=== PATIENT | female | born 1995 | race African-American/Black ===

== ENCOUNTER 2016-04-22 22:09 | Emergency (ER) | payer OTHER ==
[~2016-04-22 22:09] MED LIST: AMOX500C PO; AZIT500T2 PO; DOXY1CAP91 PO; PYRI25TA2 PO; TRICTAB PO; UNIS25TA2 PO
--- NOTE | 2016-04-22 22:36 | PD ---
HPI Chief Complaint lower abdominal pressure Date Seen: Apr 22, 2016 Travel History International Travel<30 Days: No Contact w/Intl Traveler<30Days: No Known Affected Area: No History of Present Illness HPI Ms. Gaitan is a 20 yo at 36 3/7 weeks ([facility] 05/17/2016) who presents with complaint of lower abdominal/buttock pressure for the past several hours. Patient reports that she was driving back from [place] this evening when she began to have significant pressure. Patient denies associated nausea, vomiting, or fevers. Patient denies any associated vaginal bleeding or loss of vaginal fluid. Patient states that she has been having increased urinary frequency recently but denies dysuria. Patient also reports several weeks of dizziness/lightheadedness while at school. Patient reports adequate hydration. Patient does not reports shortness of breath, chest pain, calf pain, or other symptoms at this time. Patient reports that she has not had an OB provider for several months. Patient saw Kathy Chang early during and then was subsequently treated for GC/Chlamydia at OB ED 01/2016. Patient stated that she subsequently sought OB care but was unable to find a provider. Para: 2 : 3 History Past Medical History Narrative Medical Anemia (Hgb 9.5 as of 01/2016) Migraines Chlamydia/Gonorrhea- treated 01/2016 Obstetric History Obstetric History Past Surgical History Surgical History: No Previous Surgery Family History Family History: Negative Social History Narrative Social History Patient attends class at [employer] Alcohol Use: No Tobacco Use: No Substance Abuse: Yes (Patient reports marijuana use) Allergies-Medications (Allergen,Severity, Reaction): Coded Allergies: Azithromycin (Verified Allergy, Unknown, N/V, 02/13/16) Home Meds Active Scripts Ferrous Sulfate 325 Mg Bht304 Mg PO BID #60 TAB Ref 0 Prov:Cesar Erickson MD R2 04/23/16 Nitrofurantoin Monohydrate Macrocrystals (Macrobid)100 Mg Hrp327 Mg PO BID #14 CAP Ref 0 Prov:Cesar Erickson MD R2 04/23/16 Discontinued Scripts Doxycycline (Monohydrate) (Doxycycline)100 Mg Iti306 Mg PO BID #20 TAB Ref 0 Prov:Dann Palafox MD R1 02/13/16 Azithromycin 500 Mg Tab1,000 Mg PO ONCE #2 TAB Ref 0 Prov:Dann Palafxo MD R1 02/13/16 Amoxicillin 500 Mg Wym820 Mg PO TID #21 CAP Ref 0 Prov:Dann Palafox MD R1 02/13/16 Doxylamine Succinate (Sleep) (Unisom)25 Mg Tab12.5 Mg PO BID PRN (NAUSEA) #60 TAB Ref 0 Prov:Harman Mai MD R2 02/12/16 Pyridoxine 25 Mg Tab25 Mg PO Q8HR PRN (NAUSEA) #60 TAB Ref 0 Prov:Harman Mai MD R2 02/12/16 Vit-Ferrous Fumarate ()1 Tab Tab1 Tab PO DAILY #90 TAB Ref 0 Prov:Harman Mai MD R2 02/12/16 Review of Systems General / Constitutional: No: Fever, Chills HENT: Headaches (chronic migranes) Respiratory: No: Cough, Short of Breath Gastrointestinal: Abdominal Pain (lower abdomen pressure), No: Nausea, Vomiting Genitourinary: Frequency, No: Dysuria Physical Exam BP 109/70 HR 106 RR 18 Narrative GENERAL: Well-nourished, well-developed patient. SKIN: Warm and dry. HEAD: Normocephalic and atraumatic. EYES: No scleral icterus. No injection or drainage. ENT: No nasal drainage noted. Mucous membranes pink. Airway patent. NECK: Supple, trachea midline. No JVD. CARDIOVASCULAR: Mild tachycardia, regular rhythm without murmurs RESPIRATORY: CTAB, normal rate ABDOMEN/GI: Abdomen soft, non-tender, bowel sounds present, no rebound, no guarding Gravid EXTREMITIES: No cyanosis or edema. BACK: Nontender without obvious deformity. No CVA tenderness. NEUROLOGICAL: Awake and alert. Motor and sensory function grossly within normal limits GENITOURINARY: External Genitalia: intact and normal in appearance Cervix: Dilatation: closed Membranes:Intact Uterine Contractions: occasional (~1 in 10-15 min) FHT's: Category: 1 Baseline: 145 Reactive: Y Variability: Moderate Decels: None Data Data Vital Signs Reviewed: Yes Orders Vital Signs (Adult) .ON ADMISSION (04/22/16 22:33) ^ Labor Status (04/22/16 22:33) Urinalysis - C+S If Indicated (04/22/16 22:33) Group B Beta Strep Scrn (Gbs) (04/22/16 22:33) Ob/Psych Drug Screen, Urine (04/22/16 22:33) MDM Medical Record Reviewed: Yes Narrative Course / MDM 20 yo at 36 3/7 weeks ([facility] 05/17/2016) Assessment: -Category 1 rhythm -Cervix closed -No regular contractions -Lower abdomen pressure, urinary frequency, subacute lightheadedness -PMH anemia -PMH GC/Chlamydia Plan: -Hydration encouraged -Tylenol for pain control -Will monitor EFM -Will check UA to rule out UTI -Will check UDS -Will obtain GBS Interval: UA: WBC 9, small leuk esterase, many bacteria, 1000 glucose -Culture pending UDS negative EFM reassuring with Category 1 rhythm. Sporadic contractions/irritability Suspect that patient's abdominal pain is secondary to urinary tract infection. Will discharge patient home with Macrobid prescription. Will also provide patient with Ferrous Sulfate prescription for anemia on prior labs. Patient encouraged to establish with [facility] or [facility] for OB care -Patient agreeable with this plan. Patient will seek emergency care if symptoms worsen or new symptoms develop Diagnosis Diagnosis: Primary Impression: UTI (urinary tract infection) Additional Impression: Abdominal pain affecting Disposition: 01 DISCHARGE HOME Condition: Stable Scripts Ferrous Sulfate 325 Mg Fxz353 Mg PO BID #60 TAB Ref 0 Prov:Cesar Erickson MD R2 04/23/16 Nitrofurantoin Monohydrate Macrocrystals (Macrobid)100 Mg Csr163 Mg PO BID #14 CAP Ref 0 Prov:Cesar Erickson MD R2 04/23/16 Referrals: [facility] 1 week Patient Instructions: Abdominal Pain in (ED), Urinary Tract Infection in (ED) Additional Instructions: Please call [facility] for OB appointment: [phone] If unavailable, please call [facility] to see if eligible for care: [phone] Departure Forms: School Release, Return to School Date: Apr 23, 2016 Please excuse from school until (free text option): Patient required evaluation for pain/infection during 04/22. Please provide patient with accomodations for pain during . Tests/Procedures Cesar Erickson MD R2 Apr 22, 2016 22:36
[2016-04-22] MEDS ORDERED: ACETAMINOPHEN 325 MG TAB PO ONE (23:00)
[2016-04-22 23:22] LABS: AMPHETAMINE, URINE NEG (NEG); BACTERIA, URINE MANY /hpf; BARBITURATES, URINE NEG (NEG); BLOOD, URINE NEG (NEG); COCAINE, URINE NEG (NEG); COMMENT (UR) CULTURE INDICATED; CULTURE IF INDICATED CULTURE INDICATED; GLUCOSE,URINE 1000 mg/dL (NEG); HYALINE CAST, URINE 1 /lpf (RARE); KETONE, URINE 10 mg/dL (NEG); MUCUS URINE FEW /lpf (OCC); NITRITE,URINE NEG (NEG); PH, URINE 6.5 (5.0-8.5); SQUAMOUS EPITHELIAL CELL URINE 4 /hpf (0-5); URINE COLOR LIGHT-YELLOW (YELLW/STRAW)
[2016-04-23] MEDS ORDERED: MACR100C2 PO (00:07)
[2016-04-23] MEDS ORDERED: FERR325T PO (00:07)
[2016-04-28 11:20] LABS: ECSTASY (MDMA) UR NEG (NEG); HEROIN (6-ACETYLMORPHINE) UR NEG (NEG); OBMETHADONE UR NEG (NEG); PHENCYCLIDINE URINE NEG (NEG)
[2016-04-28 11:21] LABS: BATH SALTS (MDPV) UR NEG (NEG); K2 SPICE UR NEG (NEG); OXYCODONE (PERCODAN) NEG (NEG)
== END 2016-04-23 00:25 | disposition home or self-care (01) ==
LOC: HOBED 22:09
DX: O23.43 Unspecified infection of urinary tract in pregnancy, third trimester (principal); B96.89 Other specified bacterial agents as the cause of diseases classified elsewhere; F12.90 Cannabis use, unspecified, uncomplicated; Z3A.36 36 weeks gestation of pregnancy
CPT/HCPCS: 59025; 80307; 81001; 87086; 99284; G0481

== ENCOUNTER 2016-05-11 18:56 | Emergency (ER) | payer OTHER ==
[~2016-05-11 18:56] MED LIST changes: -AMOX500C PO; -AZIT500T2 PO; -DOXY1CAP91 PO; +FERR325T PO; +MACR100C2 PO; -PYRI25TA2 PO; -TRICTAB PO; -UNIS25TA2 PO
--- NOTE | 2016-05-11 20:01 | PD ---
HPI Travel History International Travel<30 Days: No Contact w/Intl Traveler<30Days: No Known Affected Area: No History of Present Illness HPI This huong is a 20-year-old 3 para 2002 presently at 39 weeks and 1 day EDC is May 17, 2016 she presents with the chief complaint of pain in her low back pain in her hips pressure in the vaginal area no rupture of membranes no vaginal bleeding the baby is active she has seen Kathy Chang in the past however has not seen a physician in several months she was treated for GC Chlamydia January 2016 has been unable to find a provider no records are available no documented evidence of treatment for cure for GC Chlamydia No headaches no blurred vision no shortness of breath no chest pain History Past Medical History Narrative Medical She states she is allergic to Zithromax history of anemia migraines GC Chlamydia patient also has a history of pica Obstetric History Obstetric History Vaginal delivery 2 both at term Uncomplicated Patient planning on giving this baby up for adoption Past Surgical History Surgical History: No Previous Surgery Family History Family History: Negative Social History Alcohol Use: No Tobacco Use: No Substance Abuse: No Allergies-Medications (Allergen,Severity, Reaction): Coded Allergies: Azithromycin (Verified Allergy, Unknown, N/V, 02/13/16) Home Meds Active Scripts Ferrous Sulfate 325 Mg Opl843 Mg PO BID #60 TAB Ref 0 Prov:Cesar Erickson MD R2 04/23/16 Nitrofurantoin Monohydrate Macrocrystals (Macrobid)100 Mg Hiq262 Mg PO BID #14 CAP Ref 0 Prov:Cesar Erickson MD R2 04/23/16 Review of Systems Gastrointestinal: No: Nausea, Vomiting, Diarrhea, Abdominal Pain, Hematemesis, Hematochezia, Constipation, Changes in Bowel Habits, Indigestion, Loss of Appetite, Other Musculoskeletal: Pain (low back pain) Physical Exam Narrative GENERAL: Well-nourished, well-developed patient. Alert oriented 3 and cooperative in no acute distress SKIN: Warm and dry. CARDIOVASCULAR: Regular rate and rhythm without murmurs, gallops, or rubs. RESPIRATORY: Breath sounds equal bilaterally. No accessory muscle use. ABDOMEN/GI: Gravid term estimated weight of 6 pounds Gravid to [-] weeks size term Fundal Height: [-] GENITOURINARY: External Genitalia: intact and normal in appearance BUS glands: [-] Cervix: [-] Posterior soft Dilatation: [-] Fingertip Effacement: [-] 50% effaced Station: [-] -2 station Presentation: [-] Vertex Membranes: [intact Uterine Contractions: [-] Irregular FHT's: Category: [-] 1 Baseline: [-] 150 Reactive: [-] + Variability: [-] Moderate svof-na-jnyn variability Decels: [-] 0 EXTREMITIES: No cyanosis or edema. 2+ reflexes NEUROLOGICAL: Awake and alert. Motor and sensory grossly within normal limits. Five out of 5 muscle strength in all muscle groups. Normal speech. Data Data Vital Signs Reviewed: Yes (blood pressures 106/58 she is afebrile) Labs Bedside ultrasound is done BPD measures 9.5 to that equals 39 weeks and 1 day Amniotic fluid index is 13.07 Anterior grade 3 placenta Three-vessel cord positive flexion Positive tone Positive breathing 10 out of 10 biophysical profile with a reactive category 1 tracing GC/C negative patient made aware of the results she is scheduled for an induction on Tuesday May 17, 2016 at 8:00 she is aware MDM Medical Record Reviewed: No (no records available) Interpretation(s) 20-year-old at 39 weeks and 1 day Not in labor Poor care History of GC Chlamydia 10 out of 10 biophysical profile Patient scheduled for an induction on May 17 Plan External monitoring By mouth fluid hydration Urinalysis, urine drug screen, GC Chlamydia PCR If positive we will call the patient number [phone] for treatment Will obtain her records from Kathy Chang Patient had an ultrasound on October 06, 2015 here at [place] she was 7 weeks gestation that places her EDC at May 24 by her dates she is due May 17 Will schedule for an induction of labor May 17 at 8 AM Diagnosis Diagnosis: Primary Impression: with 39 completed weeks gestation Additional Impressions: Irregular contractions of the heart No care in current in third trimester Disposition: DISCHARGE HOME Condition: Stable Daily Patrick MD May 11, 2016 20:01
[2016-05-11 21:25] LABS: BACTERIA, URINE RARE /hpf; BLOOD, URINE NEG (NEG); COMMENT (UR) CULT NOT INDICATED; CULTURE IF INDICATED CULT NOT INDICATED; GLUCOSE,URINE NEG (NEG); KETONE, URINE NEG (NEG); MUCUS URINE FEW /lpf (OCC); NITRITE,URINE NEG (NEG); PH, URINE 6.5 (5.0-8.5); SQUAMOUS EPITHELIAL CELL URINE 1 /hpf (0-5); URINE COLOR COLORLESS (YELLW/STRAW)
[2016-05-11 21:29] LABS: AMPHETAMINE, URINE NEG (NEG); BARBITURATES, URINE NEG (NEG); COCAINE, URINE NEG (NEG)
[2016-05-12 02:46] LABS: CHLAMYDIA PCR NOT DETECTED (NOT DETECT); NEISSERIA PCR NOT DETECTED (NOT DETECT)
[2016-05-15 10:26] LABS: BATH SALTS (MDPV) UR NEG (NEG); ECSTASY (MDMA) UR NEG (NEG); HEROIN (6-ACETYLMORPHINE) UR NEG (NEG); K2 SPICE UR NEG (NEG); OBMETHADONE UR NEG (NEG); OXYCODONE (PERCODAN) NEG (NEG); PHENCYCLIDINE URINE NEG (NEG)
== END 2016-05-11 20:59 | disposition home or self-care (01) ==
LOC: HOBED 18:56
DX: O26.893 Other specified pregnancy related conditions, third trimester (principal); O09.33 Supervision of pregnancy with insufficient antenatal care, third trimester; Z3A.39 39 weeks gestation of pregnancy
CPT/HCPCS: 59025; 76815; 80307; 81001; 87491; 87591; 99284; G0481

== ENCOUNTER 2016-05-15 01:38 | Emergency (ER) | payer OTHER ==
[~2016-05-15] VITALS: Ht 165.1 cm; Wt 70.8 kg
--- NOTE | 2016-05-15 02:20 | PD ---
HPI Chief Complaint ctx, uncomfortable with , heartburn Date Seen: May 15, 2016 Time Seen: 02:00 Travel History International Travel<30 Days: No Contact w/Intl Traveler<30Days: No Known Affected Area: No History of Present Illness HPI 20y/o , IUP at 39.5 (by LMP) vs EDC 05/24/16 by 7w US which would place her at 38.5 PNC complicated by: 1. Insufficient PNC; she reportedly has seen Kathy Chang in the past but no PNC for months 2. GC/Chlamydia treated in 01/29 3. Teenage 4. Anemia 5. h/o migraine GONZALES 6. PICA (ice, tissues) 7. BUFA, private adoption Patient presents reporting she is uncomfortable and unable to sleep. She has been having irregular ctx since last night. She denies that the ctx are of significant intensity or frequency, but she is here because she's not able to get comfortable. She denies any attempted treatments, alleviating or aggravating factors to the ctx. She also c/o heartburn; there have been no attempted treatments and there are no aggravating or alleviating factors. She reports good FM. She denies any LOF or VB. She reports the ctx are mild and mostly just a tightening sensation. She did try to take a bath to help her sleep but was still unable to sleep. Para: 2 : 3 History Past Medical History Narrative Medical Anemia Migraine GONZALES PICA Obstetric History Obstetric History 2 FT GC/Chlamydia treated 01/29 Family History Family History: Negative Social History Narrative Social History Marijuana use, reports monthly Alcohol Use: No Tobacco Use: No Substance Abuse: Yes Allergies-Medications (Allergen,Severity, Reaction): Coded Allergies: Azithromycin (Verified Allergy, Unknown, N/V, 05/15/16) Home Meds Reported Medications [none] No Conflict Check 05/15/16 Discontinued Scripts Ferrous Sulfate 325 Mg Abt304 Mg PO BID #60 TAB Ref 0 Prov:eCsar Erickson MD R2 04/23/16 Nitrofurantoin Monohydrate Macrocrystals (Macrobid)100 Mg [id number] Mg PO BID #14 CAP Ref 0 Prov:Cesar Erickson MD R2 04/23/16 Review of Systems Except as stated in HPI: all other systems reviewed are Neg Physical Exam Narrative GENERAL: Well-nourished, well-developed patient. A&Ox3, NAD SKIN: Warm and dry. No rashes/lesions noted HEAD: Normocephalic and atraumatic. EYES: No scleral icterus. No injection or drainage. ENT: No nasal drainage noted. Mucous membranes pink. Airway patent. NECK: Supple, trachea midline. CARDIOVASCULAR: Regular rate and rhythm without murmurs, gallops, or rubs. RESPIRATORY: Breath sounds equal bilaterally. No accessory muscle use. ABDOMEN/GI: Abdomen soft, non-tender, bowel sounds present, no rebound, no guarding Gravid GENITOURINARY: External Genitalia: intact and normal in appearance BUS glands: nl Cervix: no cervical/vaginal masses, physiologic d/c, normal rugae Dilatation: 3 Effacement: 50 Station: -2 to -3, very posterior cervix Presentation: cephalic Membranes: [intact Uterine Contractions: irregular pattern SVE unchanged over 1h serial exam FHT's: Category: 1 Baseline:120s Reactive:yes Variability: moderate Decels: none EXTREMITIES: No cyanosis or edema. BACK: Nontender without obvious deformity. MS grossly normal gait, ms, ROM Psych grossly normal memory/affect NEUROLOGICAL: Awake and alert. Motor and sensory grossly within normal limits. Five out of 5 muscle strength in all muscle groups. Normal speech. Data Data Vital Signs Reviewed: Yes MDM Plan A/P: 20y/o 1. IUP at 39.5 (vs early US dates of 38/5) 2. No evidence of active labor: patient uncomfortable with , but likely normal related to advanced gestational age. SVE unchanged over 1h. Strict labor precautions. Scheduled for IOL in 2d. Comfort measures, vistaril ordered to help with rest, patient refused. 3. wellbeing: reassuring testing with reactive NST. FHR reassuring and appropriate for gestational age. FKC daily. 4. hearburn: normal BP, rx bicitra 5. h/o marijuana use: last UDS neg 6. Will draw GBS 7. Teenage 8. BUFA: private, support offered 9. Insufficient PNC: BPP appropriate and reassuring, 11/23 3-4d ago 10. F/u in 2d for IOL or sooner if needed. Diagnosis Diagnosis: Primary Impression: with 39 completed weeks gestation Additional Impressions: No care in current in third trimester Pica Disposition: 01 DISCHARGE HOME Condition: Good Patient Instructions: Movement (ED) Additional Instructions: F/U in 2d as scheduled or sooner if needed. FKC daily. Labor precautions. Rosalie Castro MD May 15, 2016 02:20
--- NOTE | 2016-05-15 02:26 | PD.LABORPN ---
Subjective Subjective NST Procedure Note Indications: IUP at 39w, marijuana use, teenage , no care, abdominal pain Baseline: 130s Variability: moderate variability Accels: good accels noted Decels: no decels noted Reactive NST Final dx: IUP at 39w, marijuana use, teenage , insufficient care, false labor F/U as clinically indicated Rosalie Castro MD May 15, 2016 02:26
[2016-05-15] MEDS ORDERED: CITRIC ACID-SODIUM CITRATE LIQ 30 ML UDC PO ONE (02:30)
[2016-05-15] MEDS ORDERED: hydrOXYzine PAMOATE 25 MG CAP PO ONE (03:15)
== END 2016-05-15 03:30 | disposition home or self-care (01) ==
LOC: HOBED 01:38
DX: Z03.79 Encounter for other suspected maternal and fetal conditions ruled out (principal); O09.33 Supervision of pregnancy with insufficient antenatal care, third trimester; O26.893 Other specified pregnancy related conditions, third trimester; F50.89 Other specified eating disorder; Z3A.39 39 weeks gestation of pregnancy
CPT/HCPCS: 87150; 99284

== ENCOUNTER 2016-05-16 06:21 | Inpatient (IN) | payer OTHER ==
[2016-05-16] VITALS (35 sets, daily range): BP systolic 93–129; BP diastolic 48–80; PULSE 71–106; RESP 16–18; TEMP 97.4–98.3
[~2016-05-16] VITALS: Ht 165.1 cm; Wt 72.6 kg
[2016-05-16] MEDS ORDERED: LACTATED RINGER'S 1000 ML INJ 1,000 ML IV PRN (06:24)
[2016-05-16] MEDS: LACTATED RINGER'S 1000 ML INJ 1,000 ML IV SCH ×2 (06:24→21:21)
[2016-05-16] MEDS ORDERED: PENICILLIN G POTASSIUM INJ 5,000,000 UNITS in SODIUM CHLORIDE 0.9% INJ 100 ML IV ONE (06:30)
[2016-05-16] MEDS ORDERED: LIDOCAINE HCL 1% 50 ML VIAL INFIL PRN (06:30)
[2016-05-16] MEDS ORDERED: MINERAL OIL 10 ML VIAL TOPICAL PRN (06:30)
[2016-05-16] MEDS ORDERED: OXYTOCIN 30 UNITS-500ML PREMIX 500 ML IV ONE (06:30)
[2016-05-16] MEDS ORDERED: CITRIC ACID-SODIUM CITRATE LIQ 30 ML UDC PO SCH (06:30)
[2016-05-16] MEDS ORDERED: SODIUM CHLORID 0.9% 500 ML INJ 500 ML IV PRN (06:30)
[2016-05-16] MEDS ORDERED: LIDOCAINE HCL 1% 50 ML VIAL I-DERMAL PRN (06:30)
--- NOTE | 2016-05-16 06:30 | PD ---
History of Present Illness History of Present Illness 20y/o , IUP at 39.5 (by LMP) vs EDC 05/24/16 by 7w US which would place her at 38.5 PNC complicated by: 1. Insufficient PNC; she reportedly has seen Kathy Chang in the past but no PNC for months 2. GC/Chlamydia treated in 01/29 3. Teenage 4. Anemia 5. h/o migraine GONZALES 6. PICA (ice, tissues) 7. BUFA, private adoption Patient presents reporting she is uncomfortable and unable to sleep. She has been having irregular ctx since last night. She says that the ctx are of significant intensity or frequency . She denies any attempted treatments, alleviating or aggravating factors to the ctx. She also c/o heartburn; there have been no attempted treatments and there are no aggravating or alleviating factors. She reports good FM. She denies any LOF or VB. She reports the ctx are strong sensation. She did try to take a bath to help her sleep but was still unable to sleep. Para: 2 : 3 History (Limited) History Past Medical History Narrative Medical Anemia Migraine GONZALES PICA Obstetric History Obstetric History 2 FT GC/Chlamydia treated 01/29 Family History Family History: Negative Social History Narrative Social History Marijuana use, reports monthly Alcohol Use: No Tobacco Use: No Substance Abuse: Yes Allergies-Medications Allergies-Medications (Allergen,Severity, Reaction): Coded Allergies: Azithromycin (Verified Allergy, Unknown, N/V, 05/15/16) Home Meds Reported Medications [none] No Conflict Check 05/15/16 Discontinued Scripts Ferrous Sulfate 325 Mg Ina385 Mg PO BID #60 TAB Ref 0 Prov:Cesar Erickson MD R2 04/23/16 Nitrofurantoin Monohydrate Macrocrystals (Macrobid)100 Mg Guf520 Mg PO BID #14 CAP Ref 0 Prov:Cesar Erickson MD R2 04/23/16 ROS Review of Systems Except as stated in HPI: all other systems reviewed are Neg Physical Exam Physical Exam Narrative GENERAL: Well-nourished, well-developed patient. A&Ox3, NAD SKIN: Warm and dry. No rashes/lesions noted HEAD: Normocephalic and atraumatic. EYES: No scleral icterus. No injection or drainage. ENT: No nasal drainage noted. Mucous membranes pink. Airway patent. NECK: Supple, trachea midline. CARDIOVASCULAR: Regular rate and rhythm without murmurs, gallops, or rubs. RESPIRATORY: Breath sounds equal bilaterally. No accessory muscle use. ABDOMEN/GI: Abdomen soft, non-tender, bowel sounds present, no rebound, no guarding Gravid GENITOURINARY: External Genitalia: intact and normal in appearance BUS glands: nl Cervix: no cervical/vaginal masses, physiologic d/c, normal rugae Dilatation: 5-6 Effacement: 60 Station: -2 to -3, very posterior cervix Presentation: cephalic Membranes: [intact Uterine Contractions: regular pattern FHT's: Category: 1 Baseline:120s Reactive:yes Variability: moderate Decels: none EXTREMITIES: No cyanosis or edema. BACK: Nontender without obvious deformity. MS grossly normal gait, ms, ROM Psych grossly normal memory/affect NEUROLOGICAL: Awake and alert. Motor and sensory grossly within normal limits. Five out of 5 muscle strength in all muscle groups. Normal speech. Data Data Data Vital Signs Reviewed: Yes MDM MDM Plan A/P: 20y/o 1. IUP at 39.5 (vs early US dates of 38/5) 2. active labor: patient uncomfortable with 3. wellbeing: reassuring testing with reactive NST. FHR reassuring and appropriate for gestational age. FKC daily. 4. hearburn: normal BP, rx bicitra 5. h/o marijuana use: last UDS neg 6. Will draw GBS 7. Teenage 8. BUFA: private, support offered 9. Insufficient PNC: BPP appropriate and reassuring, 10/10 3-4d ago 10. F/u in 2d for IOL or sooner if needed. Diagnosis Diagnosis: Primary Impression: with 39 completed weeks gestation Additional Impressions: No care in current in third trimester Pica Disposition: ADMIT Condition: Good Patient Instructions: Movement (ED) Shyam Kumar MD May 15, 2016 02:20 Shyam Kumar II, MD May 16, 2016 06:30 Shyam Kumar II, MD May 16, 2016 06:30
[2016-05-16] MEDS ORDERED: SODIUM CHLOR 0.9% 1000 ML INJ 1,000 ML IV PRN (06:44)
--- NOTE | 2016-05-16 06:48 | HHI.HP ---
History & Physical H&P Patient Name: Toni Gaitan Unit Number: [id number] Date of : 1995 Patient Status: Admitted Inpatient Attending Doctor: Shyam Kumar II, MD HPI HPI Chief Complaint Contractions Date Seen: May 16, 2016 Travel History International Travel<30 Days: No Contact w/Intl Traveler<30Days: No History of Present Illness HPI Ms. Gaitan is a 20-year-old 002 at an estimated 38 6/7 weeks vs. 39 6/7 weeks ([facility] per first trimester ultrasound) who presents with complaint of contractions. Patient last seen 05/15 in OB ED for contractions; contractions had become more intense since that time. Due to pain associated with contractions, patient's history limited. Other than contractions, patient denies complaints. No reported vaginal bleeding or loss of fluid. No chest pain, shortness of breath, headache, vomiting, dysuria, or other problems reported. Regarding history, patient reports Chlamydia/gonorrhea which was treated and subsequent test of cure negative. Patient also reports history of anemia prenatally; she was prescribed iron but states she has not been taking it. Patient otherwise denies problems this . Per review of EMR/discussion with nursing staff, patient is had hemoglobin as low as 7.5 as of 05/03/2016 at [facility]. Patient plans to give up for private adoption upon delivery. Para: 2 : 3 History (Limited) History Past Medical History Narrative Medical Anemia Chlamydia/gonorrhea Migraine headaches Prediabetes (A1c 5.7) Obstetric History Obstetric History 2 FT Family History Family History: Negative Social History Narrative Social History Marijuana history; last GBS- Alcohol Use: No Tobacco Use: No Substance Abuse: No Allergies-Medications Allergies-Medications (Allergen,Severity, Reaction): Coded Allergies: Azithromycin (Verified Allergy, Unknown, N/V, 05/15/16) Comments Patient prescribed iron 325 mg twice a day; not taking Patient prescribed Macrobid frequent UTI 04/23 Home Meds Reported Medications [none] No Conflict Check 05/15/16 Discontinued Scripts Ferrous Sulfate 325 Mg Nuv370 Mg PO BID #60 TAB Ref 0 Prov:Cesar Erickson MD R2 04/23/16 Nitrofurantoin Monohydrate Macrocrystals (Macrobid)100 Mg Lkp135 Mg PO BID #14 CAP Ref 0 Prov:Cesar Erickson MD R2 04/23/16 ROS Review of Systems General / Constitutional: No: Fever, Chills Cardiovascular: No: Chest Pain or Discomfort Respiratory: No: Short of Breath Gastrointestinal: No: Vomiting Genitourinary: No: Dysuria Physical Exam Physical Exam HR 95 P129/72 RR 18 Narrative GENERAL: Well-nourished, well-developed patient. SKIN: Warm and dry. HEAD: Normocephalic and atraumatic. EYES: No scleral icterus. No injection or drainage. ENT: No nasal drainage noted. Mucous membranes pink. Airway patent. NECK: Supple, trachea midline. No JVD. CARDIOVASCULAR: Regular rate and rhythm without murmurs RESPIRATORY: Breath sounds equal bilaterally. No accessory muscle use. ABDOMEN/GI: Abdomen soft, non-tender, bowel sounds present, no rebound, no guarding Gravid EXTREMITIES: No cyanosis or edema. BACK: Nontender without obvious deformity. No CVA tenderness. NEUROLOGICAL: Awake and alert. Motor and sensory grossly within normal limits. Five out of 5 muscle strength in all muscle groups. Normal speech. GENITOURINARY: External Genitalia: intact and normal in appearance Cervix: Dilatation: 5 Effacement: 60% Station: -2 Presentation: V Membranes: Intact Uterine Contractions: Every 3 minutes FHT's: Category: 1 Baseline: 130 Reactive: Y Variability: Moderate Decels: None Data Data Data Vital Signs Reviewed: Yes Orders Admit To Inpatient (05/16/16 ) Vital Signs (Adult) .Per protocol (05/16/16 06:24) ^ Heart (05/16/16 06:24) ^ Amnioinfusion (05/16/16 06:24) Urinary Catheter Management .ONCE (05/16/16 06:24) Lactated Ringer's 1000 Ml Inj (Lr 1000 M (05/16/16 06:24) Lactated Ringer's 1000 Ml Inj (Lr 1000 M (05/16/16 06:24) Sodium Chlorid 0.9% 500 Ml Inj (Ns 500 M (05/16/16 06:30) Sodium Chlor 0.9% 1000 Ml Inj (Ns 1000 M (05/16/16 06:44) Lidocaine 1% Inj (50 Ml) (Xylocaine 1% I (05/16/16 06:30) Citric Acid-Sodium Citrate Liq (Bicitra (05/16/16 06:30) Fentanyl Inj (Fentanyl Inj) (05/16/16 06:30) Fentanyl Inj (Fentanyl Inj) (05/16/16 06:30) Penicillin G Potassium Inj (Pfizerpen-G (05/16/16 06:30) Penicillin G Potassium Inj (Pfizerpen-G (05/16/16 10:30) Complete Blood Count With Diff (05/16/16 06:24) Hold Clot (05/16/16 06:24) Abo/Rh Blood Type (05/16/16 06:24) Urinalysis - C+S If Indicated (05/16/16 06:24) Resp Oxygen Non Rebreathe Mask (05/16/16 ) ^ Epidural / Intrathecal Infus (05/16/16 06:24) Oxytocin 30 Units-500ml Premix (Pitocin (05/16/16 06:30) Lidocaine 1% Inj (50 Ml) (Xylocaine 1% I (05/16/16 06:30) Light Mineral Oil (Muri-Lube Oil) (05/16/16 06:30) Inpatient Certification (05/16/16 ) Specimen To Be Collected PRN (05/16/16 06:24) MDM MDM Medical Record Reviewed: Yes Narrative Course / MDM Mrs. Gaitan is a 20y/o at 38 6/7 weeks vs 39 6/7 weeks who presents with contractions -Category 1 rhythm -Contractions q3 min -Cervix 5-6cm/60%/-2 -Anemic (Hgb 7.5 in 04/2016) -GBS+ -Chlamydia/Gonorrhea + during ; treated and CHRIS reportedly negative Plan: -Admit for labor -Start GBS PPX w/ PCN -Monitor EFM -Will type and screen since Hgb 7.5 -Adoption on delivery Cesar Erickson MD R2 May 16, 2016 06:48
[2016-05-16] MEDS ORDERED: ONDANSETRON HCL 4 MG/2 ML VIAL ONE (06:51)
[2016-05-16] MEDS ORDERED: ONDANSETRON HCL 4 MG/2 ML VIAL IV PUSH PRN (07:00)
[2016-05-16] MEDS ORDERED: fentaNYL 2MCG-BUPIV 0.125% INJ 100 ML ONE (07:17)
[2016-05-16 07:20] LABS: AUTOMATED NEUTROPHIL # 4.1 TH/MM3 (1.8-7.7); BASOPHIL % 0.3 % (0.0-2.0); EOSINOPHIL # 0.1 TH/MM3 (0-0.4); EOSINOPHIL % 1.5 % (0.0-4.0); HEMATOCRIT 26.5 % (35.0-46.0); LYMPH % 25.5 % (9.0-44.0); LYMPHOCYTE # 1.9 TH/MM3 (1.0-4.8); MEAN CELL VOLUME 72.5 FL (80.0-100.0); MEAN CORPUSCULAR HEMOGLOBIN 23.9 PG (27.0-34.0); MEAN CORPUSCULAR HGB CONC 32.9 % (32.0-36.0); MONO % 16.4 % (0.0-8.0); NEUT % 56.3 % (16.0-70.0); PLATELET COUNT 218 TH/MM3 (150-450); RED BLOOD COUNT 3.65 MIL/MM3 (4.00-5.30); RED CELL DISTRIBUTION WIDTH 15.4 % (11.6-17.2); WHITE BLOOD COUNT 7.3 TH/MM3 (4.0-11.0)
[2016-05-16 07:21] LABS: HEMO FLAGS AUTO DIFF
[2016-05-16 08:17] LABS: PLATELET ESTIMATE SMEAR NORMAL (NORMAL); PLATELET MORPHOLOGY NORMAL (NORMAL); SCAN/DIFF AUTO DIFF CONFIRMED
[2016-05-16] MEDS ORDERED: NO SYSTEM NARCOTICS PRN (08:45)
[2016-05-16] MEDS ORDERED: DO NOT ADMINISTER ANTICOAGULANTS PRN (08:45)
[2016-05-16] MEDS ORDERED: fentaNYL 2MCG-BUPIV 0.125% 100 ML EPIDURAL SCH (08:45)
[2016-05-16] MEDS ORDERED: ePHEDrine/NS 25 MG/5 ML SYR IV PRN (08:45)
[2016-05-16 09:08] LABS: BLOOD, URINE NEG (NEG); COMMENT (UR) CULT NOT INDICATED; CULTURE IF INDICATED CULT NOT INDICATED; GLUCOSE,URINE NEG (NEG); KETONE, URINE NEG (NEG); MUCUS URINE FEW /lpf (OCC); NITRITE,URINE NEG (NEG); PH, URINE 6.5 (5.0-8.5); SQUAMOUS EPITHELIAL CELL URINE <1 /hpf (0-5); URINE COLOR LIGHT-YELLOW (YELLW/STRAW)
[2016-05-16] MEDS ORDERED: OXYTOCIN 10 UNIT/ML AMP ONE (09:51)
--- NOTE | 2016-05-16 10:11 | PD.OB.DELI ---
Anesthesia: Epidural Episiotomy: None Vaginal Delivery: Normal Presentation: Occiput anterior Nuchal Cord: None Delayed cord clamping (45 sec): No Infant: Male One Minute : 9 Five Minute : 9 Weight: 3930 Infant Care: Suctioned, Spontaneous crying, Responded to stimulation Placenta: Spontaneous delivery, Intact Laceration: No lacerations Shyam Kumar II, MD May 16, 2016 10:11
[2016-05-16] MEDS ORDERED: BENZOCAINE 20% TOPICAL SPRAY 60 ML CAN TOPICAL PRN (10:15)
[2016-05-16] MEDS ORDERED: SODIUM CHLORIDE 0.9% FLUSH 10 ML FLUSH IV FLUSH PRN (10:15)
[2016-05-16] MEDS ORDERED: ZOLPIDEM TARTRATE 5 MG TAB PO PRN (10:15)
[2016-05-16] MEDS ORDERED: ALUMINUM/MAGNESIUM/SIMETH 30 ML CUP PO PRN (10:15)
[2016-05-16] MEDS ORDERED: WITCH HAZEL 50%/GLYCERIN 12.5% 40 PAD JAR TOPICAL PRN (10:15)
[2016-05-16] MEDS ORDERED: OXYTOCIN 10 UNIT/ML AMP IM ONE (10:30)
[2016-05-16] MEDS ORDERED: PENICILLIN G POTASSIUM INJ 2,500,000 UNITS in SODIUM CHLORIDE 0.9% INJ 100 ML IV SCH (10:30)
[2016-05-16] MEDS ORDERED: ONDANSETRON ODT 4 MG TAB PO PRN (11:00)
[2016-05-16] MEDS ORDERED: MISOPROSTOL 200 MCG TAB ONE (11:03)
[2016-05-16] MEDS: IBUPROFEN 600 MG TAB PO PRN (11:11)
[2016-05-16] MEDS ORDERED: MISOPROSTOL 200 MCG TAB VAGINAL ONE (11:45)
[2016-05-16 12:49] LABS: AMPHETAMINE, URINE NEG (NEG); BARBITURATES, URINE NEG (NEG); COCAINE, URINE NEG (NEG)
[2016-05-16] MEDS ORDERED: oxyCODONE/ACETAMINOPHEN 5 MG/325 MG TAB PO PRN ×2 (13:45)
[2016-05-16] MEDS: DOCUSATE SODIUM 50 MG/SENNA 8.6 MG TAB PO PRN (14:08)
[2016-05-16] MEDS ORDERED: MEASLES, MUMPS, RUBELLA VACCINE 0.5 ML VIAL SQ ONE (16:00)
[2016-05-16] MEDS ORDERED: DIPHTH/TETANUS/ACEL PERTUSSIS (BOOSTER) 0.5 ML VIAL/PFS IM ONE (16:00)
[2016-05-16] MEDS ORDERED: SODIUM CHLORIDE 0.9% FLUSH 10 ML FLUSH IV FLUSH SCH (21:00)
[2016-05-17] MEDS: IBUPROFEN 600 MG TAB PO PRN ×2 (01:10→08:33)
[2016-05-17] MEDS: ACETAMINOPHEN 325 MG TAB PO PRN ×2 (01:10→08:33)
[2016-05-17] MEDS: LACTATED RINGER'S 1000 ML INJ 1,000 ML IV SCH (06:00)
[2016-05-17] MEDS: DOCUSATE SODIUM 50 MG/SENNA 8.6 MG TAB PO PRN (08:34)
--- NOTE | 2016-05-17 09:41 | HHI.OB ---
Subjective Post Day: 1 Remarks Ms. Gaitan is a 20 yo who is PPD 2 from (05/16 at 0943) Patient reports that she is doing well overall this time. She states that she has abdominal cramping which is not controlled well with Percocet or Ibuprofen. Patient reports mild hand and leg swelling. Patient does not report shortness of breath, fever/chills, vaginal discharge, or dysuria. Patient passing gas; no bowel movements. Patient reports light/decreasing vaginal bleeding. Patient formula feeding her infant. Patient ambulating well. (Cesar Erickson MD R2) Objective Vitals/I&O Vital Signs Date Time Temp Pulse Resp B/P Pulse Ox O2 Delivery O2 Flow Rate FiO2 05/16/16 13:00 88 16 129/73 05/16/16 13:00 98.3 05/16/16 12:00 18 05/16/16 11:42 18 05/16/16 11:40 98.0 05/16/16 11:40 71 121/80 05/16/16 11:15 76 122/70 05/16/16 11:10 74 113/69 05/16/16 11:07 18 05/16/16 10:56 18 05/16/16 10:47 77 112/66 05/16/16 10:35 18 05/16/16 10:30 93 106/75 05/16/16 10:19 97.4 18 05/16/16 10:16 78 108/63 05/16/16 10:01 88 18 101/56 05/16/16 09:45 94 107/48 Objective Remarks GENERAL: Well-nourished, well-developed patient. CARDIOVASCULAR: Regular rate and rhythm without murmurs. Normal perfusion RESPIRATORY: CTAB; normal rate ABDOMEN/GI: Abdomen soft, non-tender. Fundus: Firm, non-tender at umbilicus. GENITOURINARY: Light to moderate bleeding. EXTREMITIES: No cyanosis or edema, non-tender, without signs of DVT. Medications and IVs Current Medications Medications (Trade) Dose Ordered Sig/Bradley Route Start Time Stop Time Status Last Admin Lactated Ringer's 1,000 ml @ 125 mls/hr Q8H IV 05/16/16 06:24 05/16/16 06:24 Lactated Ringer's 1,000 ml @ 3,000 mls/hr Q20M PRN IV 05/16/16 06:24 (NS 1000 ml Inj) 1,000 ml @ 100 mls/hr Q10H PRN IV 05/16/16 06:44 (fentaNYL INJ) 50 mcg Q1H PRN IV PUSH 05/16/16 06:30 (fentaNYL INJ) 100 mcg Q1H PRN IV PUSH 05/16/16 06:30 05/16/16 07:20 Mineral Oil 10 ml 10 ml UNSCH PRN TOPICAL 05/16/16 06:30 (fentaNYL 2MCG-BUPIV 0.125% INJ) 100 ml @ 0 mls/hr TITRATE EPIDURAL 05/16/16 08:45 (NS Flush) 2 ml BID IV FLUSH 05/16/16 21:00 (NS Flush) 2 ml UNSCH PRN IV FLUSH 05/16/16 10:15 (Tylenol) 650 mg Q4H PRN PO 05/16/16 10:15 05/17/16 08:33 (Motrin) 600 mg Q6H PRN PO 05/16/16 11:00 05/17/16 08:33 (Americaine 20% Top Spr) 1 spray Q4H PRN TOPICAL 05/16/16 10:15 (Tucks Pads) 1 applic QID PRN TOPICAL 05/16/16 10:15 (Elvia-Colace) 2 tab Q12HR PRN PO 05/16/16 11:00 05/17/16 08:34 (Ambien) 5 mg HS PRN PO 05/16/16 10:15 05/17/16 01:10 (Mag-Al Plus Susp Liq) 15 ml Q8H PRN PO 05/16/16 10:15 (Zofran Odt) 4 mg Q6H PRN PO 05/16/16 11:00 (Percocet 5-325 Mg) 1 tab Q4H PRN PO 05/16/16 13:45 (Percocet 5-325 Mg) 2 tab Q4H PRN PO 05/16/16 13:45 05/16/16 14:08 (Cesar Erickson MD R2) Assessment/Plan Problem List: (1) care and examination Assessment and Plan 20 yo who is PPD 2 from (05/16 at 0943) Pain control with Motrin/Percocet; will discharge with Motrin Ambulating well Formula feeding Anemia- Hgb 8.7 w/ MCV 72.5 -Will discharge with Ferrous Sulfate 325mg BID -Pelvic rest [id number] -F/U with FIELD ENUMERATOR at 6 weeks Discharge Planning Plan for discharge today (Cesar Erickson MD R2) Attending Attestation Pt requesting percocet. RX for #20 tabs given. Agree with resident A/P. D/c home today. (Patricia Calvert MD) Cesar Erickson MD R2 May 17, 2016 09:40 Patricia Calvert MD May 17, 2016 12:07
[2016-05-17] MEDS ORDERED: FERR325T PO (09:43)
[2016-05-17] MEDS ORDERED: SENN1TAB PO (09:43)
[2016-05-17] MEDS ORDERED: IBUP-232 PO (09:43)
--- NOTE | 2016-05-17 09:45 | HHI.DCPOC ---
Discharge Care Plan Diagnosis: (1) care and examination (2) Anemia Report Symptoms to Your Doctor -Temperate above 100.5 degrees -Redness, of incision or excessive or foul smelling drainage -Unusual pain or calf pain -Increased vaginal bleeding -Painful or difficulty urinating -Feelings of extreme sadness or anxiety after 2 weeks Goals to Promote Your Health * To prevent worsening of your condition and complications * To maintain your health at the optimal level Directions to Meet Your Goals Take your medications as prescribed Follow your dietary instruction Follow activity as directed Ensure plenty of rest for recovery Drink fluids for hydration Keep your appointments as scheduled Take your immunizations and boosters as scheduled If your symptoms worsen call your PCP, if no PCP go to Urgent Care Center or Emergency Room Smoking is Dangerous to Your Health. Avoid second hand smoke Call the 24-hour crisis hotline for domestic abuse at Cesar Erickson MD R2 May 17, 2016 09:45
[2016-05-17] MEDS ORDERED: OXYC1TAB63 PO (12:06)
[2016-05-19 14:09] LABS: BATH SALTS (MDPV) UR NEG (NEG); ECSTASY (MDMA) UR NEG (NEG); HEROIN (6-ACETYLMORPHINE) UR NEG (NEG); K2 SPICE UR NEG (NEG); OBMETHADONE UR NEG (NEG); PHENCYCLIDINE URINE NEG (NEG)
[2016-05-19 14:10] LABS: OXYCODONE (PERCODAN) NEG (NEG)
== END 2016-05-17 14:48 | disposition home or self-care (01) | DRG 775 ==
LOC: H2EA 06:21 → H1EA 12:41
PROVIDERS: ADMIT Obstetrics & Gynecology Maternal & Fetal Medicine; ATTEND Obstetrics & Gynecology Maternal & Fetal Medicine
PROC: 10E0XZZ Delivery of Products of Conception, External Approach (ICD-10-PCS; principal; 2016-05-16)
PROC: 00HU33Z Insertion of Infusion Device into Spinal Canal, Percutaneous Approach (ICD-10-PCS; 2016-05-16)
PROC: 3E0R3CZ (ICD-10-PCS; 2016-05-16)
DX: O99.824 Streptococcus B carrier state complicating childbirth (principal); D64.9 Anemia, unspecified; O99.02 Anemia complicating childbirth; Z37.0 Single live birth; Z3A.39 39 weeks gestation of pregnancy; R12 Heartburn; F12.90 Cannabis use, unspecified, uncomplicated; R73.03 Prediabetes; G43.909 Migraine, unspecified, not intractable, without status migrainosus
CPT/HCPCS: 80307; 81001; 85025; 86850; 86900; 86901; 87150; 99284; G0481; J2405; J2540; J2590; J3010; J7120

== ENCOUNTER 2016-06-28 02:42 | Emergency (ER) | payer OTHER ==
[~2016-06-28] VITALS: Ht 165.1 cm; Wt 65.0 kg
[~2016-06-28 02:42] MED LIST changes: +IBUP-232 PO; -MACR100C2 PO; +OXYC1TAB63 PO; +SENN1TAB PO
[2016-06-28 02:45] VITALS: BP 138/70; PULSE 65; RESP 16; TEMP 98.1; O2SAT 100
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
[2016-06-28] MEDS ORDERED: ACETAMINOPHEN 500 MG CPLT PO ONE (03:00)
[2016-06-28] MEDS ORDERED: ONDANSETRON ODT 4 MG TAB PO ONE (03:00)
[2016-06-28 03:33] VITALS: BP 126/74
== END 2016-06-28 03:38 | disposition home or self-care (01) ==
LOC: NEPE 02:42
DX: R51 Headache (principal); V47.6XXA Car passenger injured in collision with fixed or stationary object in traffic accident, initial encounter
CPT/HCPCS: 99282

== ENCOUNTER 2016-11-08 18:11 | Emergency (ER) | payer OTHER ==
[~2016-11-08] VITALS: Ht 165.1 cm; Wt 70.0 kg
[~2016-11-08 18:11] MED LIST changes: -FERR325T PO; -IBUP-232 PO; -OXYC1TAB63 PO
[2016-11-08 18:29] VITALS: BP 116/69; PULSE 91; RESP 18; TEMP 98; O2SAT 100
[2016-11-08 19:59] VITALS: BP 126/78; PULSE 71; RESP 20; O2SAT 100
[2016-11-08 20:00] LABS: BETA HCG QUANT 8626 MIU/ML (0-5)
--- NOTE | 2016-11-08 21:26 | RADRPT ---
EXAM DATE/TIME: 11/08/2016 20:24 [place] COMPARISON: US PELVIS, PREG (SGL/1ST GESTATION), October 06, 2015, 1:26. INDICATIONS : Ectopic. LAB(S): Beta-hC MEDICAL HISTORY : . Vomiting. Cramping. Anemia. SURGICAL HISTORY : None. ENCOUNTER: Initial ACUITY: 1 day PAIN SCORE: 4/10 LOCATION: Bilateral pelvis MEASUREMENTS: UTERUS: 8.7 x 6.0 cm ENDOMETRIAL STRIPE: >20 mm RIGHT OVARY: 4.6 x 3.2 x 1.6 cm LEFT OVARY: 3.1 x 2.9 x 2.1 cm FREE FLUID: No FINDINGS: UTERUS: The myometrium has homogeneous echotexture without mass. There is a single intrauterine gestational sac eccentrically located within the endometrium. It measures 1.1 x 1.1 x 0.6 cm. Yolk sac is present but no pole is seen. There is a fluid collection eccentrically located within the endometrium. Endometrium is thickened. RIGHT OVARY: Follicles are present. No concerning lesion is seen. Potential corpus luteal cyst is present. LEFT OVARY: Follicles are present. No concerning lesion is seen. MISCELLANEOUS: No free fluid. CONCLUSION: 1. Early intrauterine . It is too early for dating at this time and no embryo is seen. Malcolm campos clinical followup and followup beta-hCG values to confirm appropriate progression of . 2. Small fluid collection in the endometrium. Ishan Prabhakar MD on November 08, 2016 at 21:21 Board Certified Radiologist. This report was verified electronically.
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
== END 2016-11-08 22:43 | disposition home or self-care (01) ==
LOC: NEPD 18:11
DX: O26.891 Other specified pregnancy related conditions, first trimester (principal); S13.9XXA Sprain of joints and ligaments of unspecified parts of neck, initial encounter; M54.5 Low back pain; M25.512 Pain in left shoulder; V49.49XA Driver injured in collision with other motor vehicles in traffic accident, initial encounter; Y92.410 Unspecified street and highway as the place of occurrence of the external cause; Z3A.08 8 weeks gestation of pregnancy
CPT/HCPCS: 76700; 76817; 84702; 99284

== ENCOUNTER 2016-12-15 04:37 | Emergency (ER) | payer OTHER ==
[~2016-12-15] VITALS: Ht 165.1 cm; Wt 70.0 kg
[2016-12-15 04:38] VITALS: BP 120/64; PULSE 85; RESP 16; TEMP 98.8; O2SAT 99
[2016-12-15 05:53] LABS: BLOOD, URINE NEG (NEG); COMMENT (UR) CULT NOT INDICATED; CULTURE IF INDICATED CULT NOT INDICATED; GLUCOSE,URINE NEG (NEG); KETONE, URINE NEG (NEG); MUCUS URINE MOD /lpf (OCC); NITRITE,URINE NEG (NEG); SQUAMOUS EPITHELIAL CELL URINE 1 /hpf (0-5); URINE COLOR YELLOW (YELLW/STRAW)
[2016-12-15 05:55] LABS: AUTOMATED NEUTROPHIL # 3.1 TH/MM3 (1.8-7.7); BASOPHIL % 0.5 % (0.0-2.0); EOSINOPHIL # 0.3 TH/MM3 (0-0.4); EOSINOPHIL % 4.4 % (0.0-4.0); HEMATOCRIT 30.2 % (35.0-46.0); HEMO FLAGS DIFF FINAL; LYMPH % 27.5 % (9.0-44.0); LYMPHOCYTE # 1.7 TH/MM3 (1.0-4.8); MEAN CELL VOLUME 83.2 FL (80.0-100.0); MEAN CORPUSCULAR HEMOGLOBIN 27.5 PG (27.0-34.0); MONO % 17.5 % (0.0-8.0); NEUT % 50.1 % (16.0-70.0); PLATELET COUNT 241 TH/MM3 (150-450); RED BLOOD COUNT 3.63 MIL/MM3 (4.00-5.30); RED CELL DISTRIBUTION WIDTH 15.5 % (11.6-17.2); WHITE BLOOD COUNT 6.2 TH/MM3 (4.0-11.0)
[2016-12-15] MEDS ORDERED: METR-1 PO (06:01)
--- NOTE | 2016-12-15 06:02 | PD ---
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 She reports a foul odor. She reports daily vaginal bleeding for one month. At time she uses 4 pads a day. No fever. She denies nausea vomiting and diarrhea. Patient does not believe she is . PFSH Past Medical History Hx Anticoagulant Therapy: No Anemia: Yes Chemotherapy: No Diminished Hearing: No Gastrointestinal Disorders: Yes (VOMITING) Genitourinary: Yes (HX OF UTI) Immunizations Current: Yes Migraines: Yes Tetanus Vaccination: Unknown ?: Not : 4 Para: 3 Miscarriage: 0 : 0 Past Surgical History Surgical History: No Previous Surgery Hysterectomy: No Other Surgery: No Social History Alcohol Use: Yes ("ONCE IN A BLUE MCRAE") Tobacco Use: No Substance Use: Yes (MARIJUNA) Allergies-Medications (Allergen,Severity, Reaction): Coded Allergies: azithromycin (Unverified Allergy, Unknown, N/V, 12/15/16) Reported Meds & Prescriptions Reported Meds & Active Scripts Active No Active Prescriptions or Reported Medications Review of Systems Except as stated in HPI: all other systems reviewed are Neg General / Constitutional: No: Fever Physical Exam Narrative GENERAL: 21 yo F WNWD NAD PELVIC: Normal vaginal mucosa. External genitalia normal. Scant brown discharge. SKIN: Warm and dry. HEAD: Atraumatic. Normocephalic. EYES: Pupils equal and round. No scleral icterus. No injection or drainage. ENT: No nasal bleeding or discharge. Mucous membranes pink and moist. NECK: Trachea midline. No JVD. CARDIOVASCULAR: Regular rate and rhythm. RESPIRATORY: No accessory muscle use. Clear to auscultation. Breath sounds equal bilaterally. GASTROINTESTINAL: Abdomen soft, non-tender, nondistended. Hepatic and splenic margins not palpable. MUSCULOSKELETAL: Extremities without clubbing, cyanosis, or edema. No obvious deformities. NEUROLOGICAL: Awake and alert. No obvious cranial nerve deficits. Motor grossly within normal limits. Five out of 5 muscle strength in the arms and legs. Normal speech. PSYCHIATRIC: Appropriate mood and affect; insight and judgment normal. Data Data Last Documented VS Vital Signs Date Time Temp Pulse Resp B/P (MAP) Pulse Ox O2 Delivery O2 Flow Rate FiO2 12/15/16 04:38 98.8 85 16 120/64 (82) 99 Room Air VS reviewed Orders Orders Gc And Chlamydia Pcr (12/15/16 05:24) Wet Prep Profile (12/15/16 05:24) Urinalysis - C+S If Indicated (12/15/16 05:24) Ed Urine Pregnancytest Poc (12/15/16 05:24) Complete Blood Count With Diff (12/15/16 05:24) Labs Laboratory Tests Test 12/15/16 05:25 12/15/16 05:35 Urine Color YELLOW Urine Turbidity CLEAR Urine pH 6.0 Urine Specific [place] 1.030 Urine Protein TRACE mg/dL Urine Glucose (UA) NEG mg/dL Urine Ketones NEG mg/dL Urine Occult Blood NEG Urine Nitrite NEG Urine Bilirubin NEG Urine Urobilinogen 2.0 MG/DL Urine Leukocyte Esterase SMALL Urine RBC 1 /hpf Urine WBC 7 /hpf Urine Squamous Epithelial Cells 1 /hpf Urine Mucus MOD /lpf Microscopic Urinalysis Comment CULT NOT INDICATED White Blood Count 6.2 TH/MM3 Red Blood Count 3.63 MIL/MM3 Hemoglobin 10.0 GM/DL Hematocrit 30.2 % Mean Corpuscular Volume 83.2 FL Mean Corpuscular Hemoglobin 27.5 PG Mean Corpuscular Hemoglobin Concent 33.0 % Red Cell Distribution Width 15.5 % Platelet Count 241 TH/MM3 Mean Platelet Volume 7.6 FL Neutrophils (%) (Auto) 50.1 % Lymphocytes (%) (Auto) 27.5 % Monocytes (%) (Auto) 17.5 % Eosinophils (%) (Auto) 4.4 % Basophils (%) (Auto) 0.5 % Neutrophils # (Auto) 3.1 TH/MM3 Lymphocytes # (Auto) 1.7 TH/MM3 Monocytes # (Auto) 1.1 TH/MM3 Eosinophils # (Auto) 0.3 TH/MM3 Basophils # (Auto) 0.0 TH/MM3 CBC Comment DIFF FINAL Differential Comment Clue Cells (Wet Prep) PRESENT Vaginal Trichomonas (Wet Prep) NONE SEEN Vaginal Yeast (Wet Prep) NONE SEEN MDM Medical Decision Making Medical Screen Exam Complete: Yes Emergency Medical Condition: Yes Medical Record Reviewed: Yes Interpretation(s) CBC & BMP Diagram 12/15/16 05:35 Urinalysis shows small leukocyte esterase and 7 wbc's Wet prep shows bacterial vaginosis Differential Diagnosis IUP, UTI, ectopic , ov torsion, appendicitis, TOA, cervicitis, BV, Trichomoniasis, ov cyst, hernia, mittelschmerz, pain from menstruation Narrative Course Patient has bacterial vaginosis. Flagyl prescription. Diagnosis Primary Impression: Bacterial vaginosis Referrals: [facility] Dept. call for appointment Additional Instructions: You have a choice when it comes to health care, and we are glad that you chose [facility]. Hopefully, we have met your expectations on today's visit. You are welcome to return to [facility] at any time, as we are committed to meeting the health care needs of our community. Med/Other Pt SpecificInfo: Prescription(s) given Scripts Metronidazole (Flagyl) 500 Mg Tab 500 MG PO TID for Infection, #7 TAB 0 Refills Prov: Caio Han MD 12/15/16 Disposition: 01 DISCHARGE HOME Condition: Stable Caio Han MD Dec 15, 2016 06:02
[2016-12-15] MEDS ORDERED: LEVO500T8 PO (06:04)
[2016-12-15] MEDS ORDERED: LIDOCAINE HCL 1% 50 ML VIAL IM ONE (06:15)
[2016-12-15] MEDS ORDERED: cefTRIAXone 250 MG VIAL IM ONE (06:15)
[2016-12-15 07:34] LABS: CHLAMYDIA PCR NOT DETECTED (NOT DETECT); NEISSERIA PCR DETECTED (NOT DETECT)
== END 2016-12-15 06:30 | disposition home or self-care (01) ==
LOC: NEPC 04:37
DX: N76.0 Acute vaginitis (principal); B96.89 Other specified bacterial agents as the cause of diseases classified elsewhere; D64.9 Anemia, unspecified; Z88.1 Allergy status to other antibiotic agents
CPT/HCPCS: 81001; 84703; 85025; 87210; 87491; 87591; 96372; 99284; J0696

== ENCOUNTER 2017-01-29 18:00 | Emergency (ER) | payer MEDICAID ==
[~2017-01-29] VITALS: Ht 165.1 cm; Wt 70.0 kg
[~2017-01-29 18:00] MED LIST changes: +LEVO500T8 PO; +METR-1 PO; -SENN1TAB PO
[2017-01-29 18:01] VITALS: BP 138/60; PULSE 104; RESP 12; TEMP 103; O2SAT 98
--- NOTE | 2017-01-29 18:45 | PD ---
HPI Chief Complaint: Cold / Flu Symptoms Time Seen by Provider: 18:45 Travel History International Travel<30 days: No Contact w/Intl Traveler<30days: No Traveled to known affect area: No History of Present Illness HPI 21-year-old female came to the emergency room with history of generalized myalgia, fever, cough and chest hurting every time she coughed. She says her son is here to be seen as well with the same complain. She did not receive her influenza shot this year. Positive sick contacts. Patient had a temperature 103 in triage. She is otherwise a healthy person should she says. [facility] Past Medical History Narrative Medical List of her past medical, surgical, social and family history is reviewed from the nursing note Hx Anticoagulant Therapy: No Anemia: Yes Chemotherapy: No Diminished Hearing: No Gastrointestinal Disorders: Yes (VOMITING) Genitourinary: Yes (HX OF UTI) Immunizations Current: Yes Migraines: Yes : 4 Para: 3 Miscarriage: 0 : 0 Past Surgical History Hysterectomy: No Other Surgery: No Social History Alcohol Use: Yes ("ONCE IN A BLUE MCRAE") Tobacco Use: No Substance Use: Yes (MARIJUNA) Allergies-Medications (Allergen,Severity, Reaction): Coded Allergies: azithromycin (Unverified Allergy, Unknown, N/V, 01/29/17) Comments List of allergies reviewed from the nursing note Reported Meds & Prescriptions Reported Meds & Active Scripts Active Ibuprofen 400 Mg Tab 400 Mg PO Q6H PRN Tamiflu (Oseltamivir Phosphate) 75 Mg Cap 75 Mg PO BID 5 Days Narrative Medication List of her home medications reviewed from the nursing note. Review of Systems Except as stated in HPI: all other systems reviewed are Neg General / Constitutional: Positive: Fever Respiratory: Positive: Cough Musculoskeletal: Positive: Myalgias Physical Exam Narrative GENERAL: Awake, alert, moderate distress SKIN: Focused skin assessment warm/dry. HEAD: Atraumatic. Normocephalic. EYES: Pupils equal and round. No scleral icterus. No injection or drainage. ENT: No nasal bleeding or discharge. Mucous membranes pink and moist. NECK: Trachea midline. No JVD. CARDIOVASCULAR: Regular rate and rhythm. No murmur appreciated. RESPIRATORY: No accessory muscle use. Clear to auscultation. Breath sounds equal bilaterally. GASTROINTESTINAL: Abdomen soft, non-tender, nondistended. Hepatic and splenic margins not palpable. MUSCULOSKELETAL: No obvious deformities. No clubbing. No cyanosis. No edema. NEUROLOGICAL: Awake and alert. No obvious cranial nerve deficits. Motor grossly within normal limits. Normal speech. PSYCHIATRIC: Appropriate mood and affect; insight and judgment normal. Data Data Last Documented VS Vital Signs Date Time Temp Pulse Resp B/P (MAP) Pulse Ox O2 Delivery O2 Flow Rate FiO2 01/29/17 20:52 01/29/17 18:46 97 Room Air 01/29/17 18:01 103.0 104 12 Orders Orders Complete Blood Count With Diff (01/29/17 18:48) Basic Metabolic Panel (Bmp) (01/29/17 18:48) Ibuprofen (Motrin) (01/29/17 19:00) Influenzae A/B Antigen (01/29/17 18:48) Sodium Chlor 0.9% 1000 Ml Inj (Ns 1000 M (01/29/17 19:00) Blood Culture (01/29/17 18:48) Oseltamivir (Tamiflu) (01/29/17 20:00) Potassium Chloride (Kcl) (01/29/17 20:30) Ed Discharge Order (01/29/17 20:22) Labs Laboratory Tests Test 01/29/17 19:05 White Blood Count 4.6 TH/MM3 Red Blood Count 4.19 MIL/MM3 Hemoglobin 11.0 GM/DL Hematocrit 34.0 % Mean Corpuscular Volume 81.2 FL Mean Corpuscular Hemoglobin 26.3 PG Mean Corpuscular Hemoglobin Concent 32.4 % Red Cell Distribution Width 15.4 % Platelet Count 161 TH/MM3 Mean Platelet Volume 8.8 FL Neutrophils (%) (Auto) 70.6 % Lymphocytes (%) (Auto) 6.6 % Monocytes (%) (Auto) 22.0 % Eosinophils (%) (Auto) 0.6 % Basophils (%) (Auto) 0.2 % Neutrophils # (Auto) 3.2 TH/MM3 Lymphocytes # (Auto) 0.3 TH/MM3 Monocytes # (Auto) 1.0 TH/MM3 Eosinophils # (Auto) 0.0 TH/MM3 Basophils # (Auto) 0.0 TH/MM3 CBC Comment DIFF FINAL Differential Comment Blood Urea Nitrogen 8 MG/DL Creatinine 0.71 MG/DL Random Glucose 95 MG/DL Calcium Level 8.3 MG/DL Sodium Level 134 MEQ/L Potassium Level 3.3 MEQ/L Chloride Level 101 MEQ/L Carbon Dioxide Level 25.8 MEQ/L Anion Gap 7 MEQ/L Estimat Glomerular Filtration Rate 127 ML/MIN MDM Medical Decision Making Medical Screen Exam Complete: Yes Emergency Medical Condition: Yes Medical Record Reviewed: Yes Differential Diagnosis Influenza, viral illness, pneumonia Narrative Course A 20 7 PM patient was given ibuprofen for her fever. Her son is influenza result came back positive in he eats. Patient is positive as well for influenza A. Blood test result is suggestive of slight hypokalemia and hyponatremia which goes with the dehydration. Patient has been given 1 L of IV fluid bolus. She has not provided a urine sample yet. I'm comfortable discharging her home however on Tamiflu. Procedures EKG Prior to Arrival: No Diagnosis Primary Impression: Influenza A Additional Impression: Dehydration Referrals: Primary Care Physician 2 days Med/Other Pt SpecificInfo: Prescription(s) given Scripts Ibuprofen (Ibuprofen) 400 Mg Tab 400 MG PO Q6H Y for FEVER, #30 TAB 0 Refills Prov: Zeynep Hoffman MD 01/29/17 Oseltamivir (Tamiflu) 75 Mg Cap 75 MG PO BID for Mgmt Viral Infection for 5 Days, #10 CAP 0 Refills Prov: Zeynep Hoffman MD 01/29/17 Disposition: 01 DISCHARGE HOME Condition: Stable Zeynep Hoffman MD Jan 29, 2017 18:45
[2017-01-29] MEDS ORDERED: SODIUM CHLOR 0.9% 1000 ML INJ 1,000 ML IV ONE (19:00)
[2017-01-29] MEDS ORDERED: IBUPROFEN 800 MG TAB PO ONE (19:00)
[2017-01-29 19:51] LABS: AUTOMATED NEUTROPHIL # 3.2 TH/MM3 (1.8-7.7); BASOPHIL % 0.2 % (0.0-2.0); EOSINOPHIL % 0.6 % (0.0-4.0); LYMPH % 6.6 % (9.0-44.0); LYMPHOCYTE # 0.3 TH/MM3 (1.0-4.8); MEAN CELL VOLUME 81.2 FL (80.0-100.0); MEAN CORPUSCULAR HEMOGLOBIN 26.3 PG (27.0-34.0); MEAN CORPUSCULAR HGB CONC 32.4 % (32.0-36.0); MEAN PLATELET VOLUME 8.8 FL (7.0-11.0); NEUT % 70.6 % (16.0-70.0); PLATELET COUNT 161 TH/MM3 (150-450); RED BLOOD COUNT 4.19 MIL/MM3 (4.00-5.30); RED CELL DISTRIBUTION WIDTH 15.4 % (11.6-17.2); WHITE BLOOD COUNT 4.6 TH/MM3 (4.0-11.0)
[2017-01-29] MEDS ORDERED: OSELTAMIVIR PHOSPHATE 75 MG CAP PO ONE (20:00)
[2017-01-29 20:10] LABS: BICARBONATE 25.8 MEQ/L (21.0-32.0); CALCIUM 8.3 MG/DL (8.5-10.1); CREATININE 0.71 MG/DL (0.50-1.00)
[2017-01-29] MEDS ORDERED: OSEL75 PO (20:22)
[2017-01-29] MEDS ORDERED: IBUP1TAB5 PO (20:24)
[2017-01-29] MEDS ORDERED: POTASSIUM CHLORIDE 20 MEQ CONTROLLED RELEASE TAB PO ONE (20:30)
== END 2017-01-29 20:40 | disposition home or self-care (01) ==
LOC: NEPD 18:00
DX: J09.X2 Influenza due to identified novel influenza A virus with other respiratory manifestations (principal); E86.0 Dehydration
CPT/HCPCS: 80048; 85025; 87040; 87804; 96360; 99284; J7030

== ENCOUNTER 2017-05-19 17:26 | Emergency (ER) | payer SELFPAY ==
[~2017-05-19] VITALS: Ht 165.1 cm; Wt 74.0 kg
[~2017-05-19 17:26] MED LIST changes: +IBUP1TAB5 PO; -LEVO500T8 PO; -METR-1 PO; +OSEL75 PO
[2017-05-19 17:29] VITALS: BP 123/66; PULSE 82; RESP 16; TEMP 99.7; O2SAT 98
[2017-05-19 18:05] LABS: BILIRUBIN, URINE NEG (NEG); BLOOD, URINE NEG (NEG); GLUCOSE,URINE NEG (NEG); KETONE, URINE NEG (NEG); NITRITE,URINE NEG (NEG); URINE COLOR YELLOW (YELLW/STRAW); URINE LEUKOCYTE ESTERASE SMALL (NEG)
[2017-05-19 18:11] LABS: SQUAMOUS EPITHELIAL CELL URINE 0-5 /hpf (0-5); WBC, URINE 0-2 /hpf (0-5)
[2017-05-19] MEDS ORDERED: metroNIDAZOLE 500 MG TAB PO ONE (18:30)
[2017-05-19] MEDS ORDERED: DOXY100C PO (19:25)
[2017-05-19] MEDS ORDERED: METR-1 PO (19:25)
[2017-05-19] MEDS ORDERED: DIFL150T PO (19:25)
--- NOTE | 2017-05-19 19:25 | PD ---
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 Minimal discharge reported, nonbloody. No dysuria. LMP approx 3 weeks prior. Pt tried Flagyl at home without benefit. No fever/chills. No n/v/d. PFSH Past Medical History Hx Anticoagulant Therapy: No Anemia: Yes Chemotherapy: No Diminished Hearing: No Gastrointestinal Disorders: Yes (VOMITING) Genitourinary: Yes (HX OF UTI) Immunizations Current: Yes Migraines: Yes Tetanus Vaccination: > 5 Years Influenza Vaccination: Yes ?: Not LMP: 04/28/14 : 4 Para: 3 Miscarriage: 0 : 1 Past Surgical History Surgical History: No Previous Surgery Hysterectomy: No Other Surgery: No Social History Alcohol Use: Yes ("ONCE IN A BLUE MCRAE") Tobacco Use: No Substance Use: Yes (MARIJUNA) Allergies-Medications (Allergen,Severity, Reaction): Coded Allergies: azithromycin (Unverified Allergy, Unknown, N/V, 05/19/17) Reported Meds & Prescriptions Reported Meds & Active Scripts Active Doxycycline Hyclate 100 Mg Cap 100 Mg PO BID Flagyl (Metronidazole) 500 Mg Tab 500 Mg PO BID 7 Days Diflucan (Fluconazole) 150 Mg Tab 150 Mg PO ONCE Ibuprofen 400 Mg Tab 400 Mg PO Q6H PRN Tamiflu (Oseltamivir Phosphate) 75 Mg Cap 75 Mg PO BID 5 Days Review of Systems Except as stated in HPI: all other systems reviewed are Neg General / Constitutional: No: Fever Physical Exam Narrative GENERAL: 21 yo F, WNWD, NAD Vital Signs Date Time Temp Pulse Resp B/P (MAP) Pulse Ox O2 Delivery O2 Flow Rate FiO2 05/19/17 17:29 99.7 82 16 123/66 (85) 98 SKIN: Warm and dry. PELVIC: Minimal white discharge. No significant CMT. HEAD: Atraumatic. Normocephalic. EYES: Pupils equal and round. No scleral icterus. No injection or drainage. ENT: No nasal bleeding or discharge. Mucous membranes pink and moist. NECK: Trachea midline. No JVD. CARDIOVASCULAR: Regular rate and rhythm. RESPIRATORY: No accessory muscle use. Clear to auscultation. Breath sounds equal bilaterally. GASTROINTESTINAL: Abdomen soft, non-tender, nondistended. Hepatic and splenic margins not palpable. MUSCULOSKELETAL: Extremities without clubbing, cyanosis, or edema. No obvious deformities. NEUROLOGICAL: Awake and alert. No obvious cranial nerve deficits. Motor grossly within normal limits. Five out of 5 muscle strength in the arms and legs. Normal speech. PSYCHIATRIC: Appropriate mood and affect; insight and judgment normal. Data Data Last Documented VS Vital Signs Date Time Temp Pulse Resp B/P (MAP) Pulse Ox O2 Delivery O2 Flow Rate FiO2 05/19/17 17:29 99.7 82 16 123/66 (85) 98 Orders Orders Ed Urine Pregnancytest Poc (05/19/17 17:44) Urinalysis - C+S If Indicated (05/19/17 17:44) Gc And Chlamydia Pcr (05/19/17 17:49) Wet Prep Profile (05/19/17 17:49) Metronidazole (Flagyl) (05/19/17 18:30) Ed Discharge Order (05/19/17 19:25) Ceftriaxone Inj (Rocephin Inj) (05/19/17 19:30) Lidocaine 1% Inj (50 Ml) (Xylocaine 1% I (05/19/17 19:30) Lidocaine Pf 1% Inj (Xylocaine-Mpf 1% In (05/19/17 19:45) Labs Laboratory Tests Test 05/19/17 17:46 05/19/17 17:50 Urine Color YELLOW Urine Turbidity CLEAR Urine pH 7.0 Urine Specific [place] 1.010 Urine Protein NEG mg/dL Urine Glucose (UA) NEG mg/dL Urine Ketones NEG mg/dL Urine Occult Blood NEG Urine Nitrite NEG Urine Bilirubin NEG Urine Urobilinogen 0.2 MG/DL Urine Leukocyte Esterase SMALL Urine WBC 0-2 /hpf Urine Squamous Epithelial Cells 0-5 /hpf Microscopic Urinalysis Comment CULT NOT INDICATED Clue Cells (Wet Prep) NONE SEEN Vaginal Trichomonas (Wet Prep) NONE SEEN Vaginal Yeast (Wet Prep) NONE SEEN MDM Medical Decision Making Medical Screen Exam Complete: Yes Emergency Medical Condition: Yes Medical Record Reviewed: Yes Differential Diagnosis STD, UTI, IUP Narrative Course UA: No UTI UPreg: negative Empiric coverage with concern for false negative lab results. Diagnosis Primary Impression: Vaginal discharge, non-hemorrhagic Referrals: [facility] Dept. call for appointment Med/Other Pt SpecificInfo: Prescription(s) given Scripts Doxycycline Hyclate (Doxycycline Hyclate) 100 Mg Cap 100 MG PO BID for Infection, #20 CAP 0 Refills Prov: Caio Han MD 05/19/17 Metronidazole (Flagyl) 500 Mg Tab 500 MG PO BID for Infection for 7 Days, #14 TAB 0 Refills Prov: Caio Han MD 05/19/17 Fluconazole (Diflucan) 150 Mg Tab 150 MG PO ONCE for Infection, #1 TAB 0 Refills Prov: Caio Han MD 05/19/17 Disposition: 01 DISCHARGE HOME Condition: Stable Caio Han MD May 19, 2017 19:25
[2017-05-19] MEDS ORDERED: cefTRIAXone 250 MG VIAL IM ONE (19:30)
[2017-05-19] MEDS ORDERED: LIDOCAINE HCL 1% 50 ML VIAL IM ONE (19:30)
[2017-05-19] MEDS ORDERED: LIDOCAINE HCL 1% PF 10 ML VIAL ONE (19:45)
== END 2017-05-19 20:03 | disposition home or self-care (01) ==
LOC: PHED 17:26
DX: N89.8 Other specified noninflammatory disorders of vagina (principal); D64.9 Anemia, unspecified; F12.90 Cannabis use, unspecified, uncomplicated; Z87.440 Personal history of urinary (tract) infections
CPT/HCPCS: 81001; 84703; 87210; 87491; 87591; 96372; 99283; J0696